=== PATIENT | male | born 1960 | race Asian ===

== ENCOUNTER 2017-01-18 12:26 | Emergency (ER) | payer OTHER ==
[~2017-01-18] VITALS: Ht 175.3 cm; Wt 74.8 kg
[~2017-01-18 12:26] MED LIST: IBUPROFEN600 MG ORAL; NORCO 5-325 TA1 EACH ORAL
[2017-01-18] MEDS ORDERED: Ketorolac 30mg Inj IV ONE (12:45)
[2017-01-18] MEDS ORDERED: Morphine Sulfate 4mg/ml Inj IVP ONE (12:45)
[2017-01-18] MEDS ORDERED: BENAZEPRIL HCL10 MG ORAL (12:49)
[2017-01-18] MEDS ORDERED: ATROVENT HFA12.9 GM IH (12:49)
[2017-01-18] MEDS ORDERED: GLIPIZIDE5 MG ORAL (12:49)
[2017-01-18] MEDS ORDERED: QVAR7.3 GM INH (12:49)
[2017-01-18] MEDS ORDERED: METFORMIN HCL500 M1 ORAL (12:49)
[2017-01-18] MEDS ORDERED: LOVASTATIN10 MG ORAL (12:49)
[2017-01-18] MEDS ORDERED: TAMSULOSIN HCL0.4 MG ORAL (12:49)
[2017-01-18] MEDS ORDERED: Tubing IV Cassette IV ONE (12:53)
[2017-01-18 13:17] LABS: BASOPHILS % (AUTO) 0.7 % (0.0-2.0); EOSINOPHILS % (AUTO) 1.7 % (0.0-3.0); LYMPHOCYTES % (AUTO) 11.1 % (20.0-45.0); MEAN CORPUSCULAR HEMOGLOBIN 29.2 PG (27.0-31.0); MEAN CORPUSCULAR HGB CONC 34.3 G/DL (32.0-36.0); MEAN CORPUSCULAR VOLUME 85 FL (80-99); MEAN PLATELET VOLUME 7.4 FL (6.5-10.1); MONOCYTES % (AUTO) 3.2 % (1.0-10.0); NEUTROPHILS % (AUTO) 83.3 % (45.0-75.0); PLATELET COUNT 338 K/UL (150-450); RED BLOOD COUNT 5.45 M/UL (4.70-6.10); RED CELL DISTRIBUTION WIDTH 10.8 % (11.6-14.8); WHITE BLOOD COUNT 16.7 K/UL (4.8-10.8)
[2017-01-18 13:31] LABS: ALANINE AMINOTRANSFERASE 22 U/L (3-41); ALBUMIN/GLOBULIN RATIO 1.6 (1.0-2.7); ANION GAP 15 (5-15); ASPARTATE AMINO TRANSFERASE 23 U/L (5-40); CALCIUM 9.7 mg/dL (8.6-10.2); CARBON DIOXIDE 27 mEQ/L (20-30); CHLORIDE 94 mEQ/L (98-107); GLOMERULAR FILTRATION RATE > 60 mL/min (>60); HEMOLYSIS 0; LIPASE 37 U/L (< 60); POTASSIUM 4.6 mEQ/L (3.4-4.9); SODIUM 136 mEQ/L (135-145); TOTAL PROTEIN 7.8 g/dL (6.6-8.7)
[2017-01-18 14:00] VITALS: BP 152/79
[2017-01-18] MEDS ORDERED: CYCLOBENZAPRINE10 MG ORAL (14:23)
[2017-01-18] MEDS ORDERED: AMOXICILLIN500 MG ORAL (14:23)
[2017-01-18] MEDS ORDERED: IBUPROFEN600 MG ORAL (14:23)
[2017-01-18] MEDS ORDERED: PROMETHAZINE-D118 ML ORAL (14:23)
[2017-01-18 14:50] VITALS: BP 152/79
--- NOTE | 2017-01-19 07:53 | Emergency Room Report ---
History of Present Illness General Chief Complaint: Back Pain-No Injury Source: Patient Present Illness HPI 56-year-old male presents ED complaining of right-sided rib pain and cough x5 days. Patient notes history of COPD. Patient states he's been having repetitive bouts of coughing and states that he felt a pull in the ribs on his right side. Patient is complaining of 10 out of 10 pain to the right ribs. Worse with coughing or moving. No other aggravating or relieving factors. Denies fevers or chills. States cough is dry. Denies chest pain. No aggravating or leading factors. Denies any other associated symptoms Allergies: Coded Allergies: No Known Allergies (Unverified , 03/09/16) Patient History Past Medical History: DM, HTN, COPD Social History: Denies: alcohol use, drug use, smoking Immunizations: UTD Reviewed Nursing Documentation: PMH: Agreed, PSxH: Agreed Nursing Documentation-PMH Past Medical History: No History, Except For Hx Hypertension: Yes Hx COPD: Yes - emphysema Hx Diabetes: Yes Hx Gastrointestinal Problems: Yes - prostate problem Review of Systems All Other Systems: negative except mentioned in HPI Physical Exam Vital Signs Date Time Temp Pulse Resp B/P Pulse Ox O2 Delivery O2 Flow Rate FiO2 01/18/17 12:30 97.9 87 18 153/81 98 Room Air Sp02 EP Interpretation: reviewed, normal General Appearance: alert, GCS 15, non-toxic, mild distress Head: normocephalic Eyes: bilateral eye PERRL, bilateral eye normal inspection ENT: normal ENT inspection Neck: normal inspection Respiratory: crackles, other - R sided chest wall pain Cardiovascular #1: regular rate, rhythm, no edema Gastrointestinal: normal bowel sounds, non tender, soft, non-distended, no guarding, no rebound Rectal: deferred Genitourinary: no CVA tenderness Musculoskeletal: normal inspection Neurologic: alert, oriented x3, responsive, motor strength/tone normal, sensory intact, speech normal Psychiatric: normal inspection Skin: normal inspection Lymphatic: normal inspection Medical Decision Making Diagnostic Impression: Primary Impression: Chest wall muscle strain Qualified Codes: S29.011A - Strain of muscle and tendon of front wall of thorax, initial encounter Additional Impressions: Pneumonia Qualified Codes: J18.9 - Pneumonia, unspecified organism COPD (chronic obstructive pulmonary disease) Qualified Codes: J44.9 - Chronic obstructive pulmonary disease, unspecified ER Course Hospital Course 56-year-old male presents with persistent coughing, strain and right ribs x5 days Differential diagnoses include: URI, bronchitis, asthma/COPD, pneumonia Clinical course Patient placed on stretcher. After initial history, physical exam reveals an elderly male in no acute distress. Bilateral TM unremarkable. No pharyngeal erythema. No tonsillar exudates. No lymphadenopathy. Tenderness to right lateral ribs. Crackles on exam I ordered labs, pain meds, chest x-ray. Labs reviewed-leukocytosis noted, hemoglobin/hematocrit stable, electrolytes okay Chest x-ray shows possible infiltrate/atelectasis RLL On reassessment patient states he feels better. Per curb-65 criteria, patient does not require admission. Patient can be safely discharged to home with outpatient therapy. Patient agrees with plan. Diagnosis - pneumonia, chest wall muscle strain, COPD Stable and discharged home with prescriptions for motrin, flexeril, cough syrup , amoxicillin. Instructed to followup with PMD. Return to ED if symptoms recur or worsen Labs Test 01/18/17 12:41 White Blood Count 16.7 K/UL (4.8-10.8) Red Blood Count 5.45 M/UL (4.70-6.10) Hemoglobin 15.9 G/DL (14.2-18.0) Hematocrit 46.5 % (42.0-52.0) Mean Corpuscular Volume 85 FL (80-99) Mean Corpuscular Hemoglobin 29.2 PG (27.0-31.0) Mean Corpuscular Hemoglobin Concent 34.3 G/DL (32.0-36.0) Red Cell Distribution Width 10.8 % (11.6-14.8) Platelet Count 338 K/UL (150-450) Mean Platelet Volume 7.4 FL (6.5-10.1) Neutrophils (%) (Auto) 83.3 % (45.0-75.0) Lymphocytes (%) (Auto) 11.1 % (20.0-45.0) Monocytes (%) (Auto) 3.2 % (1.0-10.0) Eosinophils (%) (Auto) 1.7 % (0.0-3.0) Basophils (%) (Auto) 0.7 % (0.0-2.0) Sodium Level 136 mEQ/L (135-145) Potassium Level 4.6 mEQ/L (3.4-4.9) Chloride Level 94 mEQ/L (98-107) Carbon Dioxide Level 27 mEQ/L (20-30) Anion Gap 15 (5-15) Blood Urea Nitrogen 10 mg/dL (7-23) Creatinine 1.0 mg/dL (0.7-1.2) Estimat Glomerular Filtration Rate > 60 mL/min (>60) Glucose Level 338 mg/dL (74-106) Calcium Level 9.7 mg/dL (8.6-10.2) Total Bilirubin 0.4 mg/dL (0.0-1.2) Aspartate Amino Transf (AST/SGOT) 23 U/L (5-40) Alanine Aminotransferase (ALT/SGPT) 22 U/L (3-41) Alkaline Phosphatase 101 U/L (40-129) Total Protein 7.8 g/dL (6.6-8.7) Albumin 4.9 g/dL (3.5-5.2) Globulin 2.9 g/dL Albumin/Globulin Ratio 1.6 (1.0-2.7) Lipase 37 U/L (< 60) Chest X-Ray Diagnostic Results EP Interpretation: Yes Findings: no pneumothorax, no acute cardiopulmonary disease, other - RLL atelectasis/consolidation Number of Views: 1 Last Vital Signs Date Time Temp Pulse Resp B/P Pulse Ox O2 Delivery O2 Flow Rate FiO2 01/18/17 14:50 97.9 88 18 152/79 98 Room Air Status: improved Disposition: HOME, SELF-CARE Condition: Stable Scripts D-Methorphan Hb/Prometh Hcl* (PROMETHAZINE-DM SYRUP*) 118 Ml Syrup 5 ML ORAL Q6H Y for For Cough, #118 ML 0 Refills Prov: SYMONE RUTHERFORD M.D. 01/18/17 Amoxicillin* (AMOXIL*) 500 Mg Capsule 500 MG ORAL THREE TIMES A DAY, #21 CAP Prov: SYMONE RUTHERFORD M.D. 01/18/17 Cyclobenzaprine Hcl* (FLEXERIL*) 10 Mg Tablet 10 MG ORAL TID Y for Muscle Spasm, #20 TAB Prov: SYMONE RUTHERFORD M.D. 01/18/17 Ibuprofen* (MOTRIN*) 600 Mg Tablet 600 MG ORAL Q8H Y for For Pain, #30 TAB 0 Refills Prov: SYMONE RUTHERFORD M.D. 01/18/17 Referrals: NOT CHOSEN IPA/,REFERRING Patient Instructions: Community-Acquired Pneumonia, Adult, [id number] SYMONE RUTHERFORD M.D. Jan 19, 2017 07:53
--- NOTE | 2017-01-19 12:00 | Diagnostic Imaging Report ---
Indication: Cough Comparison: None A single view chest radiograph was obtained. Findings: Cardiomediastinal appearance is within normal limits for age. Pulmonary vascularity is appropriate. The diaphragmatic contour is smooth and costophrenic angles are sharp. No pleural effusions are identified. The bones are unremarkable. Impression: No acute findings
== END 2017-01-18 14:50 | disposition home or self-care (01) ==
LOC: EMR 12:42
DX: J18.9 Pneumonia, unspecified organism (principal); J44.9 Chronic obstructive pulmonary disease, unspecified; S29.011A Strain of muscle and tendon of front wall of thorax, initial encounter; E11.9 Type 2 diabetes mellitus without complications; I10 Essential (primary) hypertension
CPT/HCPCS: 36415; 71010; 80053; 83690; 85025; 96360; 96374; 96375; 99284; J1885; J2270; J7040